=== PATIENT | female | born 1940 | race Caucasian/White ===

== ENCOUNTER 2021-01-08 09:05 | Day surgery (SDC) | payer MEDICARE ==
[~2021-01-08] VITALS: Ht 160 cm; Wt 79.1 kg
[2021-01-08 09:33] VITALS: BP 186/95
[2021-01-08] MEDS ORDERED: HYDR12.517 PO (09:39)
[2021-01-08] MEDS ORDERED: CHLORHEXIDINE 15 ML UDC ONE (09:43)
[2021-01-08] MEDS: LACTATED RINGERS 1,000 ML IV SCH (09:54)
[2021-01-08] MEDS ORDERED: CHLORHEXIDINE 15 ML UDC PO ONE (10:00)
[2021-01-08] MEDS ORDERED: hydrALAzine 20 MG/ML, 1ML IV PRN (10:30)
[2021-01-08] MEDS ORDERED: HYDROmorphone 2 MG/ML, 1ML IVPush PRN (10:30)
[2021-01-08] MEDS ORDERED: ONDANSETRON 2MG/ML, 2ML IVPush PRN (10:30)
[2021-01-08] MEDS ORDERED: OXYcodone 5 MG/5 ML ORAL.SOL UDC PO PRN (10:30)
[2021-01-08] MEDS ORDERED: ACETAMINOPHEN 325 MG TABLET PO PRN (10:30)
[2021-01-08] MEDS ORDERED: LABETALOL 5MG/ML, 20ML IV PRN (10:30)
[2021-01-08] MEDS ORDERED: FENTANYL PF 100 MCG/2ML IV PRN (10:30)
[2021-01-08] MEDS ORDERED: METOCLOPRAMIDE 5 MG/ML, 2ML IV PRN (10:30)
[2021-01-08 11:16] LABS: CELLS COUNTED 1
== END 2021-01-08 10:59 | disposition home or self-care (01) ==
LOC: OUT 09:05
PROVIDERS: ATTEND Orthopaedic Surgery
DX: T84.84XA Pain due to internal orthopedic prosthetic devices, implants and grafts, initial encounter (principal); I10 Essential (primary) hypertension; Z20.822 Contact with and (suspected) exposure to COVID-19; Z79.899 Other long term (current) drug therapy; Y83.8 Other surgical procedures as the cause of abnormal reaction of the patient, or of later complication, without mention of misadventure at the time of the procedure
CPT/HCPCS: 20610; 73501; 77002; 87070; 87075; 87205; 87635; 89051; 93005; J7120; 76000